=== PATIENT | female | born 1985 | race African-American/Black ===

== ENCOUNTER 2018-10-12 06:50 | Day surgery (SDC) | payer OTHER ==
[~2018-10-12] VITALS: Ht 160 cm; Wt 61.2 kg
[2018-10-12] VITALS (13 sets, daily range): BP systolic 121–155; BP diastolic 60–95; PULSE 60–82; RESP 13–18; Ht 160 cm; Wt 61.2 kg
[~2018-10-12 06:50] MED LIST: NO HOME MEDS
[2018-10-12] MEDS ORDERED: CEFAZOLIN 2 GM/50 ML (PMX) 50 ML IVPB SCH (07:00)
[2018-10-12] MEDS ORDERED: SOD CHLORIDE 0.9% 1,000 ML IV SCH (07:00)
[2018-10-12] MEDS ORDERED: TRIAMCINOLONE ACET 40 MG/ML INJ ONE (07:47)
[2018-10-12] MEDS ORDERED: BUPIVACAINE 0.25% (MPF) 30 ML INJ ONE (07:47)
[2018-10-12] MEDS ORDERED: POLYMYXIN/BACITRACIN 1L IRRIG ONE (07:52)
--- NOTE | 2018-10-12 07:52 | PREAC ---
Date/Time of Note Date/Time of Note DATE: 10/12/18 TIME: 07:50 Anesthesia Eval and Record Evaluation Time Pre-Procedure Interview DATE: 10/12/18 TIME: 07:50 Age 33 Sex female NPO: 8 hrs Preoperative diagnosis right inguinal hernia and left groin mass Planned procedure open right inguinal hernia repair with mesh and left groin mass resection and injection of kenalog Past Medical History Past Medical History: Includes Recreational drugs: Marijuana Surgery & Anesthesia Issues No known issue Meds Anticoagulation: No Beta Montez within 24 hr: No Reason Beta Montez not given: Pt. not on B-Montez Discontinued Reported Medications [No Home Meds] No Conflict Check 12/22/14 Current Medications Cefazolin Sodium/ Dextrose 50 ml @ 100 mls/hr PREOP IVPB ; Start 10/12/18 at 07:00; Stop 10/12/18 at 16:00 Sodium Chloride 1,000 ml @ 75 mls/hr [id number] IV ; Start 10/12/18 at 07:00; Stop 10/12/18 at 20:19 Meds reviewed: Yes Allergies Coded Allergies: No Known Allergy (Unverified , 10/12/18) Allergies Reviewed: Yes Labs/Studies Labs Reviewed: Reviewed by anesthesiologist test: Negative Pre-procedure Exam Last vitals Vital Signs Date Temp Pulse Resp B/P (MAP) Pulse Ox O2 O2 Flow FiO2 Time Delivery Rate 10/12/18 97.9 60 18 121/60 96 Room Air 07:29 (80) Airway: Adequate mouth opening, Adequate thyromental dist Mallampati: Mallampati II Teeth: Normal Lung: Normal Heart: Normal ASA Physical Status ASA physical status: 1 Emergency: None Planned Anesthetic General/MAC: ETT Nerve block: TAP (right) Planned Pain Management Single shot nerve block, Parenteral pain med Pre-operative Attestations Prior to commencing anesthesia and surgery, the patient was re-evaluated, there was verification of: *The patient's identity *The results of appropriate recent lab work and preoperative vital signs *The above evaluation not changing prior to induction *Anesthetic plan, risk benefits, alternative and complications discussed with patient/family; questions answered; patient/family understands, accepts and wishes to proceed. BRIAN QUINTERO MD Oct 12, 2018 07:52
[2018-10-12] MEDS ORDERED: hydrALAzine 20 MG INJ IV PRN (08:00)
[2018-10-12] MEDS ORDERED: HYDROmorphONE 1 MG/5 ML IV SYRINGE IV PRN ×3 (08:00)
[2018-10-12] MEDS ORDERED: OXYCODONE/ACETAMINOPHEN (5/325) TAB PO PRN (08:00)
[2018-10-12] MEDS ORDERED: LABETALOL HCL 20MG INJ IV PRN (08:00)
[2018-10-12] MEDS ORDERED: FENTAnyl 50 MCG/ML VIAL IV PRN ×3 (08:00)
[2018-10-12] MEDS ORDERED: DIPHENHYDRAMINE 50 MG INJ IV PRN (08:00)
[2018-10-12] MEDS ORDERED: MEPERIDINE 25 MG INJ IV PRN (08:00)
[2018-10-12] MEDS ORDERED: PROCHLORPERAZINE 10 MG INJ IV PRN (08:00)
[2018-10-12] MEDS ORDERED: ONDANSETRON 4 MG INJ IV PRN (08:00)
[2018-10-12] MEDS ORDERED: EPHEDrine SULFATE 50 MG/5 ML SYG IV PRN (08:00)
[2018-10-12] MEDS ORDERED: ROCURONIUM 50 MG INJ ONE (08:04)
[2018-10-12] MEDS ORDERED: MIDAZOLAM 1 MG/ML 2 ML INJ ONE (08:04)
[2018-10-12] MEDS ORDERED: SUCCINYLCHOLINE CHLORIDE 100 MG/5 ML SYG IV ONE (08:04)
[2018-10-12] MEDS ORDERED: PROPOFOL 20 ML ONE ×2 (08:04→08:33)
[2018-10-12] MEDS ORDERED: LIDOCAINE 2% (SDV) 5 ML INJ ONE (08:04)
[2018-10-12] MEDS ORDERED: ROPIVACAINE 0.5 % 30 ML VIAL ONE (08:06)
[2018-10-12] MEDS ORDERED: FENTAnyl 50 MCG/ML VIAL ONE (08:25)
[2018-10-12] MEDS ORDERED: CEFAZOLIN 1 GM INJ ONE (08:41)
[2018-10-12] MEDS ORDERED: DEXAMETHASONE 4 MG/ML 5 ML INJ ONE (08:43)
[2018-10-12] MEDS ORDERED: ONDANSETRON 4 MG INJ ONE (08:43)
[2018-10-12] MEDS ORDERED: SUGAMMADEX SODIUM 200 MG/2 ML VIAL IV ONE ×2 (09:20→09:31)
[2018-10-12] MEDS ORDERED: KETOROLAC 30 MG INJ ONE (09:23)
[2018-10-12] MEDS ORDERED: HYDROCODONE/APAP (5/325) TAB PO ONE (09:30)
--- NOTE | 2018-10-12 09:36 | OPR ---
Date/Time of Note Date/Time of Note DATE: 10/12/18 TIME: 09:30 Operative Report Procedure Date: Oct 12, 2018 Preoperative Diagnosis incarcerated right inguinal hernia and left groin mass Postoperative Diagnosis same Operation/Procedure Performed 1. open right incarcerated inguinal hernia repair with small ultraproplug mesh 2. left groin mass excision 2 cm mass 2 cm incision 3. localized adjacent tissue transfer with the use of skin flaps 4 sq cm defect in the left groin 4. kenalog injection subcutaneously Surgeon see signature line Merchandising Assistant none Anesthesia Type: general Estimated Blood Loss: 0 - 10 ml's Transfusion none Specimen left groin mass Grafts/Implants none Complications none Pt Condition Post Procedure: stable Indications This is a 33-year-old female with a right incarcerated inguinal hernia and she has also has a left groin mass. She requires surgical repair of the right inguinal hernia that is incarcerated and excision of the left groin mass. Risks alternatives benefits and personnel were discussed with the patient. Patient expressed understanding and consents to the operation. Procedure Description Patient is taken to the OR and prepped and draped in usual sterile fashion. Surgical time was performed. IV antibiotics were given. Elliptical incision was made with a 15 blade around the left groin mass. Dissection with cautery carried onto the mass and circumferentially excised. Due to tissue defect localized adjacent to his transfer with these of skin flaps was performed. Multilayer closure with interrupted 3-0 Vicryl and running 4-0 Monocryl. Kenalog was injected at the beginning and end of the case along the incision site. Attention was then paid to the right incarcerated inguinal hernia. Oblique incision was made with a 10 blade. Dissection with cautery was carried onto the extremity fascia. The externally fascia was opened with a 15 blade. This incision was extended medial fairly lateral sparely with Metzenbaum scissors. Round ligament is identified and divided to allow good repair of the hernia defect. Small ultra pro plug was then secured in place the hernia defect with a running 0 Prolene from the pubic tubercle all along the shelving is unlimited. Superiorly the plug was secured to the internal bleed with interrupted 3-0 Vicryl. Onlay mesh was secured in a similar fashion with a running 0 Prolene from the pubic tubercle along the shelving is unlimited. Superiorly the onlay mesh was secured to enter oblique with interrupted 0 Vicryl. Externally fascia is closed with running 3-0 Vicryl. Alli's fascia was closed with interrupted 3-0 Vicryl. Skin is closed with interrupted 3-0 Vicryl and running 4-0 Monocryl. Kenalog was also injected at the beginning and end of the incision operation. Steri-Strips and dry dressings were applied to both surgical sites. Servando ALVAREZ Oct 12, 2018 09:36
--- NOTE | 2018-10-12 09:54 | PAC ---
Date/Time of Note Date/Time of Note DATE: 10/12/18 TIME: 09:53 Post-Anesthesia Notes Post-Anesthesia Note Last documented vital signs Vital Signs Date Temp Pulse Resp B/P (MAP) Pulse Ox O2 O2 Flow FiO2 Time Delivery Rate 10/12/18 97.9 09:14 10/12/18 60 18 121/60 96 Room Air 07:29 (80) Activity: WNL Respiratory function: WNL Cardiovascular function: WNL Mental status: Baseline Pain reasonably controlled: Yes Hydration appropriate: Yes Nausea/Vomiting absent: Yes Comments BP: 135/81 HR: 80 RR: 15 T: 97.9 SaO2: 100% BRIAN QUINTERO MD Oct 12, 2018 09:54
== END 2018-10-12 12:05 | disposition home or self-care (01) ==
LOC: SDS 06:50
PROVIDERS: ATTEND Surgery
DX: K40.30 Unilateral inguinal hernia, with obstruction, without gangrene, not specified as recurrent (principal)
CPT/HCPCS: 14000; 49507; 80048; 85025; 85610; 85730; 88307; C1781; J0690; J1100; J1885; J2250; J2405; J3010; Z7512; Z7610; J2795